=== PATIENT | male | born 1970 | race Caucasian/White ===

== ENCOUNTER 2017-12-06 14:06 | Emergency (ER) | payer SELFPAY ==
[~2017-12-06] VITALS: Ht 180.3 cm; Wt 73.0 kg
[~2017-12-06 14:06] MED LIST: BACT800T5 PO; CLIN150 PO
[2017-12-06 14:21] VITALS: BP 137/70; PULSE 79; RESP 16; TEMP 98.6; O2SAT 98
[2017-12-06] MEDS ORDERED: ceFAZolin 2 GM PREMIX 50 ML IV ONE (15:30)
[2017-12-06] MEDS ORDERED: TETANUS/DIPHTHERIA TOXOID ADULT 0.5 ML VIAL IM ONE (15:30)
[2017-12-06] MEDS ORDERED: BUPIVACAINE HCL PF 0.5% 10 ML VIAL INFIL ONE (15:30)
--- NOTE | 2017-12-06 15:32 | PD ---
HPI Chief Complaint: Injury Time Seen by Provider: 15:26 Travel History International Travel<30 days: No Contact w/Intl Traveler<30days: No Traveled to known affect area: No History of Present Illness HPI [id number] male presents for evaluation of crush injury to the distal right index finger. He reports that prior to arrival his finger got smashed in a concrete block maker. He has throbbing pain to the distal aspect of the right index finger, worse with movement. Last tetanus vaccination unknown. No other complaints at this time. PFSH Past Medical History Arthritis: No Asthma: No Heart Rhythm Problems: No Cardiovascular Problems: No High Cholesterol: No Chest Pain: No Congestive Heart Failure: No COPD: No Cerebrovascular Accident: No Diminished Hearing: No Gastrointestinal Disorders: Yes (acid reflux, Jose's esophagus) GERD: Yes Genitourinary: No Headaches: No Hepatitis: No Hiatal Hernia: No Hypertension: No Inguinal Hernia: Yes (BILATERAL WITH MESH PLACED) Kidney Stones: No Musculoskeletal: No Neurologic: No Reproductive: No Respiratory: No Immunizations Current: Yes Migraines: No Myocardial Infarction: No Renal Failure: No Seizures: No Sleep Apnea: No Ulcer: No Past Surgical History Abdominal Surgery: Yes (HERNIA REPAIR) Appendectomy: No Cardiac Surgery: No Cholecystectomy: No Ear Surgery: No Endocrine Surgery: No Eye Surgery: No Genitourinary Surgery: No Oral Surgery: No Thoracic Surgery: No Other Surgery: Yes (hemorrhoidectomy, vasectomy) Social History Alcohol Use: No Tobacco Use: Yes (1 PPD) Substance Use: No Allergies-Medications (Allergen,Severity, Reaction): Coded Allergies: penicillin G (Unverified Allergy, Unknown, 06/22/17) Reported Meds & Prescriptions Reported Meds & Active Scripts Active Review of Systems General / Constitutional: No: Fever, Chills Musculoskeletal: Positive: Pain Skin: Positive Other (positive for bleeding, pain) Physical Exam Narrative GENERAL: Well-nourished male who appears to be uncomfortable. SKIN: Warm and dry. There is dried blood matted to the fingertip of the right index finger. The nail has been avulsed at the root. HEAD: Atraumatic. Normocephalic. EYES: Pupils equal and round. No scleral icterus. No injection or drainage. ENT: No nasal bleeding or discharge. Mucous membranes pink and moist. NECK: Trachea midline. No JVD. CARDIOVASCULAR: Regular rate and rhythm. No murmur appreciated. RESPIRATORY: No accessory muscle use. Clear to auscultation. Breath sounds equal bilaterally. MUSCULOSKELETAL: Skin as noted above. Tender to palpation distal aspect of right fingertip. No amputation. Pain with range of motion. Distal sensation appears to be preserved. NEUROLOGICAL: Awake and alert. No obvious cranial nerve deficits. Motor grossly within normal limits. Normal speech. Data Data Last Documented VS Vital Signs Date Time Temp Pulse Resp B/P (MAP) Pulse Ox O2 Delivery O2 Flow Rate FiO2 12/06/17 14:21 98.6 79 16 137/70 (92) 98 Orders Orders Cefazolin 2 Gm Premix (Ancef 2 Gm Premix (12/06/17 15:30) Tetanus/Diphtheria Tox Adult (Tetanus/Di (12/06/17 15:30) Bupivacaine Pf 0.5% Inj (Marcaine Pf 0.5 (12/06/17 15:30) Finger ([id number]) (12/06/17 ) MDM Medical Decision Making Medical Screen Exam Complete: Yes Emergency Medical Condition: Yes Medical Record Reviewed: Yes Differential Diagnosis Open fracture, nail bed laceration, puncture wound Narrative Course X-ray imaging reveals no acute bony abnormalities. The patient has a laceration to the fingertip with a complete avulsion of his nail and some avulsion of his nail bed tissue. The laceration was repaired with absorbable sutures asbestos anatomically possible, he verbally consented. He has an allergy to penicillin but he has had Keflex in the past with no problem. He was given IV Ancef with no reaction. The patient is being discharged with Keflex, recommend outpatient follow-up with a hand specialist for wound recheck. Procedures Procedure Narrative LACERATION LOCATION: Right finger LENGTH: 2 cm NUMBER OF STITCHES/TIFFANIE: 7 REPAIR: The area of the laceration was prepped with Betadine and sterilely draped. The laceration was infiltrated with 0.5% Marcaine digital block. The wound was copiously irrigated and explored without evidence of foreign body, tendon injury or neurovascular injury. The wound was closed using 5-0 fast- absorbing chromic. This was a single layer repair. A sterile dressing was applied. The patient was advised to keep the dressing clean and dry. Patient tolerated the procedure well. Diagnosis Primary Impression: Finger laceration Additional Impression: Fingernail avulsion Referrals: Himanshu Lemus MD Additional Instructions: Wash the wound gently with soap and water and apply antibiotic cream daily. Take the antibiotics as prescribed. Follow up with a hand specialist such as Dr. Lemus in 4-5 days for recheck. Return for any emergent medical conditions. Med/Other Pt SpecificInfo: Prescription(s) given, Wound Care Scripts Cephalexin (Keflex) 500 Mg Cap 500 MG PO Q8H for Infection for 5 Days, #15 CAP 0 Refills Prov: Suzette Garcia MD 12/06/17 Disposition: 01 DISCHARGE HOME Condition: Stable Horacio Hammer Dec 06, 2017 15:32
--- NOTE | 2017-12-06 15:58 | RADRPT ---
EXAM DATE/TIME: 12/06/2017 15:32 [facility] COMPARISON: No previous studies available for comparison. INDICATIONS : Pain in right distal 2nd digit after getting finger smashed in a placement specialist. MEDICAL HISTORY : None. SURGICAL HISTORY : None. ENCOUNTER: Initial ACUITY: 1 day PAIN SCORE: 10/10 LOCATION: Right hand, 2nd digit FINDINGS: Visualized osseous structures appear intact. Joint spaces are maintained. Circumferential superficial increased density in the fingertip. CONCLUSION: 1. No acute fracture or dislocation. Samuel Ayala MD on December 06, 2017 at 15:46 Board Certified Radiologist. This report was verified electronically.
[2017-12-06] MEDS ORDERED: CEPH-460 PO (16:59)
== END 2017-12-06 17:20 | disposition home or self-care (01) ==
LOC: PHED 14:06 → PHEFT 17:20
DX: S61.319A Laceration without foreign body of unspecified finger with damage to nail, initial encounter (principal); K21.9 Gastro-esophageal reflux disease without esophagitis; F17.210 Nicotine dependence, cigarettes, uncomplicated; W23.0XXA Caught, crushed, jammed, or pinched between moving objects, initial encounter; Z23 Encounter for immunization
CPT/HCPCS: 12001; 73140; 90471; 90714; 96374; 99284; J0690

== ENCOUNTER 2018-03-02 23:28 | Emergency (ER) | payer SELFPAY ==
[~2018-03-02 23:28] MED LIST changes: -BACT800T5 PO; +CEPH-460 PO; -CLIN150 PO
[2018-03-02 23:39] VITALS: BP 147/60; PULSE 95; RESP 20; TEMP 99.5; O2SAT 98
[2018-03-03] MEDS ORDERED: KETOROLAC TROMETHAMINE 30 MG/ML (IVP) VIAL IVP ONE (01:15)
[2018-03-03] MEDS ORDERED: CLINDAMYCIN INJ 600 MG in SODIUM CHLORIDE 0.9% INJ 100 ML IV ONE (01:15)
--- NOTE | 2018-03-03 01:19 | PD ---
HPI Chief Complaint: Skin Problem Time Seen by Provider: 01:06 Travel History International Travel<30 days: No Contact w/Intl Traveler<30days: No Traveled to known affect area: No History of Present Illness HPI 47yo M with left arm pain for 4 days. States he was injecting dilaudid in left forearm 4 days ago and it started off as a small red bump. However, redness started spreading and left arm is more swollen now. Denies any fever, chest pain, sob, n/v, abdominal pain, focal weakness or numbness. PFSH Past Medical History Arthritis: No Asthma: No Heart Rhythm Problems: No Cardiovascular Problems: No High Cholesterol: No Chest Pain: No Congestive Heart Failure: No COPD: No Cerebrovascular Accident: No Diminished Hearing: No Gastrointestinal Disorders: Yes (acid reflux, Jose's esophagus) GERD: Yes (barrets esophagus) Genitourinary: No Headaches: No Hepatitis: No Hiatal Hernia: No Hypertension: No Inguinal Hernia: Yes (BILATERAL WITH MESH PLACED) Kidney Stones: No Musculoskeletal: No Neurologic: No Reproductive: No Respiratory: No Immunizations Current: Yes Migraines: No Myocardial Infarction: No Renal Failure: No Seizures: No Sleep Apnea: No Ulcer: No Past Surgical History Abdominal Surgery: Yes (HERNIA REPAIR) Appendectomy: No Cardiac Surgery: No Cholecystectomy: No Ear Surgery: No Endocrine Surgery: No Eye Surgery: No Genitourinary Surgery: No Oral Surgery: No Thoracic Surgery: No Other Surgery: Yes (hemorrhoidectomy, vasectomy) Social History Alcohol Use: No Tobacco Use: Yes (1 PPD) Substance Use: No Allergies-Medications (Allergen,Severity, Reaction): Coded Allergies: penicillin G (Unverified Allergy, Unknown, 03/03/18) Reported Meds & Prescriptions Reported Meds & Active Scripts Active No Active Prescriptions or Reported Medications Review of Systems Except as stated in HPI: all other systems reviewed are Neg Physical Exam Narrative GENERAL: 47yo M in mild distress. SKIN: Focused skin assessment warm/dry. HEAD: Atraumatic. Normocephalic. CARDIOVASCULAR: Regular rate and rhythm. No murmur appreciated. RESPIRATORY: No accessory muscle use. Clear to auscultation. Breath sounds equal bilaterally. GASTROINTESTINAL: Abdomen soft, non-tender, nondistended. MUSCULOSKELETAL: LUE: +Small fluctuance in left proximal ulnar on volar surface with surrounding erythema, warmth and induration of 9cm by 6cm. Tender to palpation. Radial pulse 2+. Sensation intact. NEUROLOGICAL: Awake and alert. No obvious cranial nerve deficits. Motor grossly within normal limits. Normal speech. PSYCHIATRIC: Appropriate mood and affect; insight and judgment normal. Data Data Last Documented VS Vital Signs Date Time Temp Pulse Resp B/P (MAP) Pulse Ox O2 Delivery O2 Flow Rate FiO2 03/03/18 02:19 77 18 124/58 (80) 96 Room Air 03/02/18 23:39 99.5 Orders Orders Basic Metabolic Panel (Bmp) (03/03/18 01:13) Complete Blood Count With Diff (03/03/18 01:13) Blood Culture (03/03/18 01:13) Ketorolac Inj (Toradol Inj) (03/03/18 01:15) Clindamycin Inj (Cleocin Inj) (03/03/18 01:15) Us Arm Soft Tissue (03/03/18 ) Lactic Acid Sepsis Protocol (03/03/18 01:13) Lidocaine 1% Inj (50 Ml) (Xylocaine 1% I (03/03/18 03:15) Lidocaine Pf 1% Inj (Xylocaine-Mpf 1% In (03/03/18 03:30) Labs Laboratory Tests Test 03/03/18 01:30 White Blood Count 10.9 TH/MM3 Red Blood Count 4.51 MIL/MM3 Hemoglobin 13.2 GM/DL Hematocrit 39.3 % Mean Corpuscular Volume 87.2 FL Mean Corpuscular Hemoglobin 29.2 PG Mean Corpuscular Hemoglobin Concent 33.5 % Red Cell Distribution Width 13.9 % Platelet Count 334 TH/MM3 Mean Platelet Volume 7.5 FL Neutrophils (%) (Auto) 67.9 % Lymphocytes (%) (Auto) 19.8 % Monocytes (%) (Auto) 7.0 % Eosinophils (%) (Auto) 1.2 % Basophils (%) (Auto) 4.1 % Neutrophils # (Auto) 7.4 TH/MM3 Lymphocytes # (Auto) 2.2 TH/MM3 Monocytes # (Auto) 0.8 TH/MM3 Eosinophils # (Auto) 0.1 TH/MM3 Basophils # (Auto) 0.4 TH/MM3 CBC Comment DIFF FINAL Differential Comment Blood Urea Nitrogen 25 MG/DL Creatinine 0.97 MG/DL Random Glucose 108 MG/DL Calcium Level 9.2 MG/DL Sodium Level 135 MEQ/L Potassium Level 4.1 MEQ/L Chloride Level 101 MEQ/L Carbon Dioxide Level 28.4 MEQ/L Anion Gap 6 MEQ/L Estimat Glomerular Filtration Rate 83 ML/MIN Lactic Acid Level 0.8 mmol/L MDM Medical Decision Making Medical Screen Exam Complete: Yes Emergency Medical Condition: Yes Differential Diagnosis Cellulitis vs. abscess Narrative Course 47yo M with IVDA here with left forearm cellulitis. There is a small fluctuance and then surrounding induration and erythema. Labs reviewed, no leukocytosis. H/H normal. Lactic acid is normal. BUN mildly elevated at 25. Pt likely dehydrated. Able to hydrate orally. Pt given toradol and clindamycin. I do see a small fluctuance on exam but will do US left arm to make sure there is no deeper abscess. US left arm showed hypoechoic area seen just deep to skin measuring 2.8 x 1.6 x 1.2cm in the medial anterior forearm. Since this is superficial and small, I&D completed here. Pt instructed to return to the ED in 2 days for packing removal and wound check. Return precautions given. Procedures Procedure Narrative INCISION AND DRAINAGE OF ABSCESS: The area was prepped and was sterilely draped. A subcutaneous wheal of 1 % Xylocaine with a total number 2 mL was used to anesthetize the area properly. A number 11 scalpel was used to make a 1 -cm incision across the area of the abscess. The abscess was drained, complex loculations were broken down. Quarter inch iodoform packing was placed in the wound. Sterile dressing applied. Patient advised to have packing removed in two days. Diagnosis Primary Impression: Abscess Patient Instructions: General Instructions Departure Forms: Tests/Procedures Additional Instructions: Please return in 2 days for packing removal and wound check. Return sooner if redness and pain worsens or any other concerning symptoms. Med/Other Pt SpecificInfo: Prescription(s) given Scripts Acetaminophen (Tylenol) 325 Mg Tab 650 MG PO Q6H Y for PAIN SCALE 1 TO 4, #20 TAB 0 Refills Prov: Latoya Martin DO 03/03/18 Sulfamethoxazole-Trimethoprim (Bactrim DS) 800-160 Mg Tab 1 TAB PO BID for Infection, #20 TAB 0 Refills Prov: Latoya Martin DO 03/03/18 Disposition: 01 DISCHARGE HOME Condition: Stable Latoya Martin DO Mar 03, 2018 01:19
[2018-03-03 01:54] LABS: AUTOMATED NEUTROPHIL # 7.4 TH/MM3 (1.8-7.7); BASOPHIL # 0.4 TH/MM3 (0-0.2); BASOPHIL % 4.1 % (0.0-2.0); EOSINOPHIL # 0.1 TH/MM3 (0-0.4); EOSINOPHIL % 1.2 % (0.0-4.0); HEMATOCRIT 39.3 % (39.0-51.0); HEMOGLOBIN 13.2 GM/DL (13.0-17.0); LYMPH % 19.8 % (9.0-44.0); LYMPHOCYTE # 2.2 TH/MM3 (1.0-4.8); MEAN CELL VOLUME 87.2 FL (80.0-100.0); MEAN CORPUSCULAR HEMOGLOBIN 29.2 PG (27.0-34.0); MEAN CORPUSCULAR HGB CONC 33.5 % (32.0-36.0); MEAN PLATELET VOLUME 7.5 FL (7.0-11.0); MONOCYTE # 0.8 TH/MM3 (0-0.9); NEUT % 67.9 % (16.0-70.0); PLATELET COUNT 334 TH/MM3 (150-450); RED BLOOD COUNT 4.51 MIL/MM3 (4.50-5.90); RED CELL DISTRIBUTION WIDTH 13.9 % (11.6-17.2); WHITE BLOOD COUNT 10.9 TH/MM3 (4.0-11.0)
[2018-03-03 02:03] LABS: CALCIUM 9.2 MG/DL (8.5-10.1)
[2018-03-03 02:04] LABS: BICARBONATE 28.4 MEQ/L (21.0-32.0)
[2018-03-03 02:08] LABS: CREATININE 0.97 MG/DL (0.60-1.30)
[2018-03-03 02:19] VITALS: BP 124/58; PULSE 77; RESP 18; O2SAT 96
--- NOTE | 2018-03-03 02:43 | RADRPT ---
EXAM DATE/TIME: 03/03/2018 02:22 [facility] COMPARISON: No previous studies available for comparison. INDICATIONS : Abscess. MEDICAL HISTORY : Gastroesophageal reflux disease. Hernia. Constipation. Substance use. SURGICAL HISTORY : Hernia repair. Vasectomy. ENCOUNTER: Initial ACUITY: 1 day PAIN SCORE: 5/10 LOCATION: Left arm. AREA EVALUATED: Medial anterior forearm. FINDINGS: MASSES: None. FLUID COLLECTIONS: Hypoechoic area seen just deep to the skin measuring 2.8 x 1.6-1.2 cm in the medial anterior forearm. OTHER: Negative. CONCLUSION: Small abscess left medial anterior forearm as above. Noah Nieto MD on March 03, 2018 at 2:40 Board Certified Radiologist. This report was verified electronically.
[2018-03-03] MEDS ORDERED: LIDOCAINE HCL 1% 50 ML VIAL INFIL ONE (03:15)
[2018-03-03] MEDS ORDERED: LIDOCAINE HCL 1% PF 10 ML VIAL INFIL ONE (03:30)
[2018-03-03] MEDS ORDERED: BACT800T5 PO (03:59)
[2018-03-03] MEDS ORDERED: TYLE325T PO (03:59)
[2018-03-03 04:40] VITALS: BP 110/58; TEMP 98.5
== END 2018-03-03 04:42 | disposition home or self-care (01) ==
LOC: PHED 23:28
DX: L02.414 Cutaneous abscess of left upper limb (principal); F17.200 Nicotine dependence, unspecified, uncomplicated
CPT/HCPCS: 10060; 76882; 80048; 83605; 85025; 87040; 96365; 96375; 99284; J1885

== ENCOUNTER 2018-03-07 20:53 | Emergency (ER) | payer SELFPAY ==
[~2018-03-07 20:53] MED LIST changes: +BACT800T5 PO; -CEPH-460 PO; +TYLE325T PO
[2018-03-07 21:20] VITALS: BP 119/71; PULSE 90; RESP 20; TEMP 99.9; O2SAT 99
--- NOTE | 2018-03-07 23:02 | PD ---
HPI Chief Complaint: Fever Time Seen by Provider: 22:56 Travel History International Travel<30 days: No Contact w/Intl Traveler<30days: No Traveled to known affect area: No History of Present Illness HPI Patient was seen here on back on when he was treated for a cellulitis with Bactrim swelling around the left arm improved, the lesion shriveled up and is almost gone now. However the patient now started to develop lightheadedness , nausea, vomiting, occasional diarrhea, weakness, cottonmouth, and so he returns for evaluation. The symptoms have been only going on for about 24 hours. Patient was was doing well prior to. States allergy to penicillin to which she develops hives Past medical history significant for Matamoros's esophagus, GERD, hernia repair, smoker, hemorrhoidectomy and vasectomy. PFSH Past Medical History Arthritis: No Asthma: No Heart Rhythm Problems: No Cardiovascular Problems: No High Cholesterol: No Chest Pain: No Congestive Heart Failure: No COPD: No Cerebrovascular Accident: No Diminished Hearing: No Gastrointestinal Disorders: Yes (acid reflux, Jose's esophagus) GERD: Yes (barrets esophagus) Genitourinary: No Headaches: No Hepatitis: No Hiatal Hernia: No Hypertension: No Inguinal Hernia: Yes (BILATERAL WITH MESH PLACED) Kidney Stones: No Musculoskeletal: No Neurologic: No Reproductive: No Respiratory: No Immunizations Current: Yes Migraines: No Myocardial Infarction: No Renal Failure: No Seizures: No Sleep Apnea: No Ulcer: No Tetanus Vaccination: < 5 Years Influenza Vaccination: No Past Surgical History Abdominal Surgery: Yes (HERNIA REPAIR) Appendectomy: No Cardiac Surgery: No Cholecystectomy: No Ear Surgery: No Endocrine Surgery: No Eye Surgery: No Genitourinary Surgery: No Oral Surgery: No Thoracic Surgery: No Other Surgery: Yes (hemorrhoidectomy, vasectomy) Social History Alcohol Use: No Tobacco Use: Yes (1 PPD) Substance Use: No (Patient denies ) Allergies-Medications (Allergen,Severity, Reaction): Coded Allergies: penicillin G (Unverified Allergy, Unknown, 03/07/18) Reported Meds & Prescriptions Reported Meds & Active Scripts Active Tylenol (Acetaminophen) 325 Mg Tab 650 Mg PO Q6H PRN Bactrim DS (Sulfamethoxazole-Trimethoprim) 800-160 Mg Tab 1 Tab PO BID Review of Systems General / Constitutional: No: Fever Eyes: No: Visual changes HENT: Positive: Lightheadedness, Other Cardiovascular: No: Chest Pain or Discomfort Respiratory: No: Shortness of Breath Gastrointestinal: No: Abdominal Pain Genitourinary: No: Dysuria Musculoskeletal: No: Pain Skin: No Rash Neurologic: Positive: Weakness Psychiatric: No: Depression Endocrine: No: Polydipsia Hematologic/Lymphatic: No: Easy Bruising Physical Exam Narrative GENERAL: SKIN: Warm and dry. HEAD: Atraumatic. Normocephalic. EYES: Pupils equal and round. No scleral icterus. No injection or drainage. ENT: No nasal bleeding or discharge. Mucous membranes dry NECK: Trachea midline. No JVD. CARDIOVASCULAR: Regular rate and rhythm. Good capillary refill time RESPIRATORY: No accessory muscle use. Clear to auscultation. Breath sounds equal bilaterally. GASTROINTESTINAL: Abdomen soft, non-tender, nondistended. MUSCULOSKELETAL: Extremities without clubbing, cyanosis, or edema. No obvious deformities. NEUROLOGICAL: Awake and alert. No obvious cranial nerve deficits. Motor grossly within normal limits. Five out of 5 muscle strength in the arms and legs. Normal speech. PSYCHIATRIC: Appropriate mood and affect; insight and judgment normal. Data Data Last Documented VS Vital Signs Date Time Temp Pulse Resp B/P (MAP) Pulse Ox O2 Delivery O2 Flow Rate FiO2 03/08/18 00:05 77 18 116/70 (85) 97 Room Air 03/07/18 21:20 99.9 Orders Orders Complete Blood Count With Diff (03/07/18 23:03) Basic Metabolic Panel (Bmp) (03/07/18 23:03) Lipase (03/07/18 23:03) Influenzae A/B Antigen (03/07/18 23:03) Chest, Single Ap (03/07/18 23:03) Iv Access Insert/Monitor (03/07/18 23:03) Ecg Monitoring (03/07/18 23:03) Oximetry (03/07/18 23:03) Sodium Chlor 0.9% 1000 Ml Inj (Ns 1000 M (03/07/18 23:15) Labs Laboratory Tests Test 03/08/18 00:00 White Blood Count 9.2 TH/MM3 Red Blood Count 4.34 MIL/MM3 Hemoglobin 12.9 GM/DL Hematocrit 37.5 % Mean Corpuscular Volume 86.4 FL Mean Corpuscular Hemoglobin 29.7 PG Mean Corpuscular Hemoglobin Concent 34.3 % Red Cell Distribution Width 13.9 % Platelet Count 336 TH/MM3 Mean Platelet Volume 6.7 FL Neutrophils (%) (Auto) 73.0 % Lymphocytes (%) (Auto) 15.6 % Monocytes (%) (Auto) 7.0 % Eosinophils (%) (Auto) 1.3 % Basophils (%) (Auto) 3.1 % Neutrophils # (Auto) 6.8 TH/MM3 Lymphocytes # (Auto) 1.4 TH/MM3 Monocytes # (Auto) 0.6 TH/MM3 Eosinophils # (Auto) 0.1 TH/MM3 Basophils # (Auto) 0.3 TH/MM3 CBC Comment AUTO DIFF Differential Comment AUTO DIFF CONFIRMED Platelet Estimate NORMAL Platelet Morphology Comment NORMAL Red Cell Morphology Comment NORMAL Blood Urea Nitrogen 10 MG/DL Creatinine 0.86 MG/DL Random Glucose 96 MG/DL Calcium Level 8.8 MG/DL Sodium Level 136 MEQ/L Potassium Level 4.0 MEQ/L Chloride Level 104 MEQ/L Carbon Dioxide Level 27.5 MEQ/L Anion Gap 5 MEQ/L Estimat Glomerular Filtration Rate 95 ML/MIN Lipase 75 U/L [facility] Medical Decision Making Medical Screen Exam Complete: Yes Emergency Medical Condition: Yes Medical Record Reviewed: Yes Differential Diagnosis Flu versus viral syndrome versus pneumonia Narrative Course CBC shows leukocytosis, no anemia, normal platelet count, no left shift. Electrolytes are all within normal limits, normal kidney and pancreatic functions. Chest x-ray read by radiologist as no acute cardiopulmonary process Flu test negative Diagnosis Primary Impression: Dehydration Additional Impression: Food poisoning Patient Instructions: Dehydration (ED), Food Poisoning (GEN), Full Liquid Diet (DC), General Instructions Additional Instructions: Please continue to take your previously prescribed antibiotics until you are finished with them Scripts Ondansetron Odt (Zofran Odt) 4 Mg Tab 4 MG SL Q6HR Y for Nausea/Vomiting, #16 TAB 0 Refills Prov: Cornell Lake MD 03/08/18 Disposition: 01 DISCHARGE HOME Condition: Stable Cornell Lake MD Mar 07, 2018 23:01
[2018-03-07] MEDS ORDERED: SODIUM CHLOR 0.9% 1000 ML INJ 1,000 ML IV ONE (23:15)
--- NOTE | 2018-03-07 23:38 | RADRPT ---
EXAM DATE/TIME: 03/07/2018 23:07 [facility] COMPARISON: No previous studies available for comparison. INDICATIONS : Fever, weakness. MEDICAL HISTORY : None. SURGICAL HISTORY : None. ENCOUNTER: Initial ACUITY: 1 day PAIN SCORE: 0/10 LOCATION: Bilateral chest FINDINGS: A single view of the chest demonstrates the lungs to be symmetrically aerated without evidence of mas s, infiltrate or effusion. The cardiomediastinal contours are unremarkable. Osseous structures are intact. CONCLUSION: No acute cardiopulmonary process. Harshad Lisa MD on March 07, 2018 at 23:36 Board Certified Radiologist. This report was verified electronically.
[2018-03-07 23:50] VITALS: O2SAT 97
[2018-03-08 00:05] VITALS: BP 116/70; PULSE 77; RESP 18; O2SAT 97
[2018-03-08 00:13] LABS: AUTOMATED NEUTROPHIL # 6.8 TH/MM3 (1.8-7.7); BASOPHIL # 0.3 TH/MM3 (0-0.2); BASOPHIL % 3.1 % (0.0-2.0); EOSINOPHIL # 0.1 TH/MM3 (0-0.4); EOSINOPHIL % 1.3 % (0.0-4.0); HEMATOCRIT 37.5 % (39.0-51.0); HEMOGLOBIN 12.9 GM/DL (13.0-17.0); LYMPH % 15.6 % (9.0-44.0); LYMPHOCYTE # 1.4 TH/MM3 (1.0-4.8); MEAN CELL VOLUME 86.4 FL (80.0-100.0); MEAN CORPUSCULAR HEMOGLOBIN 29.7 PG (27.0-34.0); MEAN CORPUSCULAR HGB CONC 34.3 % (32.0-36.0); MEAN PLATELET VOLUME 6.7 FL (7.0-11.0); MONOCYTE # 0.6 TH/MM3 (0-0.9); PLATELET COUNT 336 TH/MM3 (150-450); RED BLOOD COUNT 4.34 MIL/MM3 (4.50-5.90); RED CELL DISTRIBUTION WIDTH 13.9 % (11.6-17.2); WHITE BLOOD COUNT 9.2 TH/MM3 (4.0-11.0)
[2018-03-08 00:24] LABS: BICARBONATE 27.5 MEQ/L (21.0-32.0); CALCIUM 8.8 MG/DL (8.5-10.1)
[2018-03-08 00:28] LABS: CREATININE 0.86 MG/DL (0.60-1.30)
[2018-03-08] MEDS ORDERED: ZOFR4TAB3 SL (00:35)
== END 2018-03-08 00:49 | disposition home or self-care (01) ==
LOC: PHED 20:53
DX: E86.0 Dehydration (principal); T62.91XA Toxic effect of unspecified noxious substance eaten as food, accidental (unintentional), initial encounter; K21.9 Gastro-esophageal reflux disease without esophagitis; K22.70 Barrett's esophagus without dysplasia; F17.200 Nicotine dependence, unspecified, uncomplicated
CPT/HCPCS: 71045; 80048; 83690; 85025; 87804; 96360; 99284; J7030